=== PATIENT | female | born 1955 | race Caucasian/White ===

== ENCOUNTER → 2016-09-22 | Outpatient (CLI) | payer OTHER ==
--- NOTE | 2016-09-22 13:11 | DX ---
Left Wrist, 4 views including a navicular view History: Pain post trauma. Fell down stairs yesterday. Findings: No fracture or dislocation is identified. Impression: Nothing acute identified.
== END ==
LOC: BMCIMAGING 12:42
PROVIDERS: ATTEND Family Medicine
DX: M25.532 Pain in left wrist (principal); W10.8XXA Fall (on) (from) other stairs and steps, initial encounter

== ENCOUNTER → 2019-01-23 | Outpatient (CLI) | payer OTHER | LOC: BMCIMAGING 13:04 ==

== ENCOUNTER → 2019-01-29 | Outpatient (CLI) | payer OTHER | LOC: BMCIMAGING 11:16 ==